=== PATIENT | female | born 1990 | race American Indian/Alaskan Native ===

== ENCOUNTER 2020-09-07 10:52 | Emergency (ER) | payer MEDICAID, OTHER ==
[2020-09-07] MEDS ORDERED: LIDOCAINE (1%) 10 MG/1 ML VIAL 20 ML MDV INFILTRATI ONE (10:59)
[2020-09-07] MEDS ORDERED: HYDROcodone/ACETAMINOPHEN 5-325 MG TAB PO ONE (10:59)
--- NOTE | 2020-09-07 11:03 | Emergency Department Report ---
- General Chief complaint: Skin/Abscess/Foreign Body Stated complaint: INFECTED CYST Time Seen by Provider: 09/07/20 10:59 Source: patient Mode of arrival: Ambulatory Limitations: No Limitations - History of Present Illness Initial comments: pt is a 30 yo female who presents to the ED with c/o left axillary abscess that began 2-3 days ago. she states she has had this in the past. she states she last had it drained approximately a year ago. she denies any fever, n/v/d, chills, drainage, numbness, weakness. no pmhx. no allergies to meds. states she has implanted control in the arm. - Related Data Previous Rx's Medication Instructions Recorded Last Taken Type Ferrous Sulfate [Feosol 325 MG tab] 325 mg PO BID #60 tablet 09/13/14 Unknown Rx HYDROcodone/APAP 5-325 [[place] 1 each PO Q6HR PRN #30 tablet 09/13/14 Unknown Rx 5/325] Ibuprofen [Motrin] 800 mg PO Q8H PRN #30 tablet 09/13/14 Unknown Rx [id number]/Iron Fum/Folic/Docusate 1 each PO QDAY #30 tablet 09/13/14 Unknown Rx [ 19 Tablet] Naproxen [EC-Naprosyn] 500 mg PO BID PRN #20 tablet. 09/07/20 Unknown Rx Sulfamethoxazole/Trimethoprim 1 each PO BID 7 Days #14 tablet 09/07/20 Unknown Rx [Bactrim DS TAB] Allergies Allergy/AdvReac Type Severity Reaction Status Date / Time No Known Allergies Allergy Verified 09/07/20 10:53 Abscess Boil HPI - HPI Chief Complaint: Skin/Abscess/Foreign Body Stated Complaint: INFECTED CYST Time Seen by Provider: 09/07/20 10:59 Home Medications: Previous Rx's Medication Instructions Recorded Last Taken Type Ferrous Sulfate [Feosol 325 MG tab] 325 mg PO BID #60 tablet 09/13/14 Unknown Rx HYDROcodone/APAP 5-325 [[place] 1 each PO Q6HR PRN #30 tablet 09/13/14 Unknown Rx 5/325] Ibuprofen [Motrin] 800 mg PO Q8H PRN #30 tablet 09/13/14 Unknown Rx [id number]/Iron Fum/Folic/Docusate 1 each PO QDAY #30 tablet 09/13/14 Unknown Rx [ 19 Tablet] Naproxen [EC-Naprosyn] 500 mg PO BID PRN #20 tablet. 09/07/20 Unknown Rx Sulfamethoxazole/Trimethoprim 1 each PO BID 7 Days #14 tablet 09/07/20 Unknown Rx [Bactrim DS TAB] Allergies/Adverse Reactions: Allergies Allergy/AdvReac Type Severity Reaction Status Date / Time No Known Allergies Allergy Verified 09/07/20 10:53 ED Review of Systems ROS: Stated complaint: INFECTED CYST Other details as noted in HPI Comment: All other systems reviewed and negative ED Past Medical Hx - Past Medical History Hx Hypertension: No Hx Congestive Heart Failure: No Hx Diabetes: No Hx Deep Vein Thrombosis: No Hx Renal Disease: No Hx Sickle Cell Disease: No Hx Seizures: No Hx Asthma: No Hx COPD: No Hx HIV: No - Surgical History Past Surgical History?: Yes Additional Surgical History: CSECT - Social History Smoking Status: Current Every Day Smoker Substance Use Type: None - Medications Home Medications: Home Medications Medication Instructions Recorded Confirmed Last Taken Type Ferrous Sulfate [Feosol 325 MG tab] 325 mg PO BID #60 tablet 09/13/14 Unknown Rx HYDROcodone/APAP 5-325 [[place] 1 each PO Q6HR PRN #30 tablet 09/13/14 Unknown Rx 5/325] Ibuprofen [Motrin] 800 mg PO Q8H PRN #30 tablet 09/13/14 Unknown Rx [id number]/Iron Fum/Folic/Docusate 1 each PO QDAY #30 tablet 09/13/14 Unknown Rx [ 19 Tablet] Naproxen [EC-Naprosyn] 500 mg PO BID PRN #20 tablet. 09/07/20 Unknown Rx Sulfamethoxazole/Trimethoprim 1 each PO BID 7 Days #14 tablet 09/07/20 Unknown Rx [Bactrim DS TAB] ED Physical Exam - General Limitations: No Limitations General appearance: alert, in no apparent distress - Head Head exam: Present: atraumatic, normocephalic - Eye Eye exam: Present: normal appearance - ENT ENT exam: Present: mucous membranes moist - Respiratory Respiratory exam: Absent: respiratory distress, accessory muscle use - Neurological Exam Neurological exam: Present: alert, oriented X3 - Psychiatric Psychiatric exam: Present: normal affect, normal mood - Skin Skin exam: Present: warm, dry, other (there is a 4 cm area of induration and central fluctuance present to the left axilla, no drainage, no opening, no necrosis, mild surrounding erythema, neurovascularly intact) ED Course Vital Signs 09/07/20 10:53 Temperature 98.5 F Pulse Rate 94 H Respiratory 18 Rate Blood Pressure 138/77 O2 Sat by Pulse 98 Oximetry - I & D Left Arm Type of Procedure: Complex Site: left axilla Blade Size: 11 I & D Procedure: betadine prep, sterile drapes applied, sterile dressing applied Progress: betadine prep, sterile drapes applied, 6 cc of 1% lidocaine without epi used as anesthetic, 11 blade used to make 2 cm incision, copious amounts of malodorous purulent drainage, used blunt hemostats to break up loculations, irrigated with saline, packed with iodoform, sterile dressing applied, pt tolerated well, no complications, bleeding controlled ED Medical Decision Making - Medical Decision Making pt is a 30 yo female who presents to the ED with c/o left axillary abscess that began 2-3 days ago. she states she has had this in the past. she states she last had it drained approximately a year ago. she denies any fever, n/v/d, chills, drainage, numbness, weakness. no pmhx. no allergies to meds. states she has implanted control in the arm. vitals are normal. on exam: there is a 4 cm area of induration and central fluctuance present to the left axilla, no drainage, no opening, no necrosis, mild surrounding erythema, neurovascularly intact. I&D performed per procedure note. Due to mild surrounding cellulitis, Bactrim prescribed. Patient given prescription for naproxen to take as needed for pain. Advised patient please take medication as prescribed. please take your antibiotics to completion. keep area clean, dry, covered. please return to the ED in two days for packing removal. may wash around area with soap and water gently and pat dry. no hot tub, no pool, no soaking in water. follow up with a primary care doctor. return to the emergency room for any new or worsening sympt oms. Critical care attestation.: If time is entered above; I have spent that time in minutes in the direct care of this critically ill patient, excluding procedure time. ED Disposition Clinical Impression: Abscess of axilla, left Disposition: DC-01 TO HOME OR SELFCARE Is pt being admited?: No Does the pt Need Aspirin: No Condition: Stable Instructions: Skin Abscess, Incision and Drainage, Care After Additional Instructions: please take medication as prescribed. please take your antibiotics to completion. keep area clean, dry, covered. please return to the ED in two days for packing removal. may wash around area with soap and water gently and pat dry. no hot tub, no pool, no soaking in water. follow up with a primary care doctor. return to the emergency room for any new or worsening symptoms. Prescriptions: Sulfamethoxazole/Trimethoprim [Bactrim DS TAB] 1 each PO BID 7 Days #14 tablet Naproxen [EC-Naprosyn] 500 mg PO BID PRN #20 tablet.dr GODDARD Reason: pain Referrals: PRIMARY MD NELY [Primary Care Provider] - 2-3 Days ALISHA FERNÁNDEZ MD [Staff Physician] - 2-3 Days [facility] [Provider Group] - 2-3 Days Time of Disposition: 11:38 Print Language: MALAYSIAN
[2020-09-07 11:21] VITALS: BP 138/77
== END 2020-09-07 12:10 | disposition home or self-care (01) ==
LOC: ED 10:52
DX: L02.412 Cutaneous abscess of left axilla (principal); F17.200 Nicotine dependence, unspecified, uncomplicated; Z98.890 Other specified postprocedural states; Z79.1 Long term (current) use of non-steroidal anti-inflammatories (NSAID); Z79.899 Other long term (current) drug therapy
CPT/HCPCS: 99282

== ENCOUNTER 2020-09-09 23:49 | Emergency (ER) | payer MEDICAID ==
--- NOTE | 2020-09-10 00:04 | Emergency Department Report ---
Suture/Staple Removal - HPI Stated Complaint: PACKING REMOVAL Time Seen by Provider: 09/10/20 00:00 When Sutures or Delia Placed: 2 days Wound Location: 21-year-old Northern [place] female that emerge department for wound reevaluation a ED Review of Systems ROS: Stated complaint: PACKING REMOVAL Other details as noted in HPI Comment: All other systems reviewed and negative ED Past Medical Hx - Past Medical History Hx Hypertension: No Hx Congestive Heart Failure: No Hx Diabetes: No Hx Deep Vein Thrombosis: No Hx Renal Disease: No Hx Sickle Cell Disease: No Hx Seizures: No Hx Asthma: No Hx COPD: No Hx HIV: No - Surgical History Additional Surgical History: CSECT - Social History Smoking Status: Former Smoker - Medications Home Medications: Home Medications Medication Instructions Recorded Confirmed Last Taken Type Ferrous Sulfate [Feosol 325 MG tab] 325 mg PO BID #60 tablet 09/13/14 Unknown Rx HYDROcodone/APAP 5-325 [[place] 1 each PO Q6HR PRN #30 tablet 09/13/14 Unknown Rx 5/325] Ibuprofen [Motrin] 800 mg PO Q8H PRN #30 tablet 09/13/14 Unknown Rx [id number]/Iron Fum/Folic/Docusate 1 each PO QDAY #30 tablet 09/13/14 Unknown Rx [ 19 Tablet] Naproxen [EC-Naprosyn] 500 mg PO BID PRN #20 tablet. 09/07/20 Unknown Rx Sulfamethoxazole/Trimethoprim 1 each PO BID 7 Days #14 tablet 09/07/20 Unknown Rx [Bactrim DS TAB] Suture Removal Exam - Exam General: Vital signs noted. No distress. Alert and acting appropriately. Wound: Yes Tenderness, Yes Drainage (Bloody), No Pathologic Erythema, No Pus, No Wound Dehiscence Other Systems: All other systems reviewed and are unremarkable. ED Recheck MDM - Differential Diagnosis Wound Recheck, Cellultitis Recheck - Medical Decision Making Packing was removed entirely no complications and the wound was expressed and cleaned. The area was redressed no further packing was utilized and she was educated on the appropriate wound care treatment and follow-up Critical care attestation.: If time is entered above; I have spent that time in minutes in the direct care of this critically ill patient, excluding procedure time. ED Disposition Clinical Impression: Abscess of axilla, left, Abscess packing removal Disposition: TO HOME OR SELFCARE Is pt being admited?: No Does the pt Need Aspirin: No Condition: Stable Instructions: How to Change Your Wound Dressing, [id number] Referrals: [facility] [Provider Group] - 3-5 Days Abscess Boil HPI - HPI Stated Complaint: PACKING REMOVAL Time Seen by Provider: 09/10/20 00:00 Duration: 2 Days Severity: Mild HPI: 21-year-old [place] female that emerge department for wound reevaluation and packing removal from the left axillary region. States has been taking antibiotics as prescribed packing was placed about 2 days ago she reports no fever, chills, sweats no chest pain or palpitations. Home Medications: Previous Rx's Medication Instructions Recorded Last Taken Type Ferrous Sulfate [Feosol 325 MG tab] 325 mg PO BID #60 tablet 09/13/14 Unknown Rx HYDROcodone/APAP 5-325 [[place] 1 each PO Q6HR PRN #30 tablet 09/13/14 Unknown Rx 5/325] Ibuprofen [Motrin] 800 mg PO Q8H PRN #30 tablet 09/13/14 Unknown Rx [id number]/Iron Fum/Folic/Docusate 1 each PO QDAY #30 tablet 09/13/14 Unknown Rx [ 19 Tablet] Naproxen [EC-Naprosyn] 500 mg PO BID PRN #20 tablet. 09/07/20 Unknown Rx Sulfamethoxazole/Trimethoprim 1 each PO BID 7 Days #14 tablet 09/07/20 Unknown Rx [Bactrim DS TAB] Allergies/Adverse Reactions: Allergies Allergy/AdvReac Type Severity Reaction Status Date / Time No Known Allergies Allergy Verified 09/07/20 10:53
== END 2020-09-10 01:46 | disposition home or self-care (01) ==
LOC: ED 23:49
DX: L02.412 Cutaneous abscess of left axilla (principal); Z48.01 Encounter for change or removal of surgical wound dressing; Z98.890 Other specified postprocedural states; Z87.891 Personal history of nicotine dependence; Z79.899 Other long term (current) drug therapy
CPT/HCPCS: 99282

== ENCOUNTER 2022-02-03 10:00 | Outpatient (CLI) | payer MEDICAID ==
[2022-02-03 06:33] LABS: Basophils # (Auto) 0.2 K/mm3 (0.0-0.1); Basophils % (Auto) 2.4 % (0.0-1.8); Eosinophils # (Auto) 0.7 K/mm3 (0.0-0.4); Eosinophils % (Auto) 8.6 % (0.0-4.3); Hematocrit 33.8 % (30.3-42.9); Hemoglobin 10.9 gm/dl (10.1-14.3); Lymphocytes # (Auto) 2.5 K/mm3 (1.2-5.4); Lymphocytes % (Auto) 29.9 % (13.4-35.0); Mean Corpuscular HGB Conc 32 % (30-34); Mean Corpuscular Volume 86 fl (79-97); Monocytes # (Auto) 0.7 K/mm3 (0.0-0.8); Monocytes % (Auto) 8.6 % (0.0-7.3); Platelet Count 270 K/mm3 (140-440); Red Blood Count 3.95 M/mm3 (3.65-5.03); Red Cell Distribution Width 15.1 % (13.2-15.2)
[~2022-02-03 10:00] MED LIST: BICITRA ORAL LIQD 30ML PO ONE; FAMOTIDINE 20 MG/2 ML INJ IV ONE; LACTATED RINGERS 1,000 ML IV SCH; LACTATED RINGERS 1,000 ML ONE; METOCLOPRAMIDE 10 MG/2 ML INJ IV ONE; OXYTOCIN DRIP 30 UNITS/500 ML BAG IV SCH; ceFAZolin/Water 2 GM/20 ML 2 GM/20 ML SYRINGE IV NR
[2022-02-08] MEDS ORDERED: SODIUM CHLORIDE 0.9% IRR 1,500 ML BOTTLE IR ONE (10:57)
[2022-02-08] MEDS ORDERED: WATER FOR IRRIG STERILE 1,500 ML BOTTLE IR ONE (10:57)
[2022-02-08 13:25] VITALS: BP 129/89
== END 2022-02-03 15:30 | disposition home or self-care (01) ==
LOC: TRG 10:00
PROVIDERS: ATTEND Obstetrics & Gynecology
DX: O82 Encounter for cesarean delivery without indication (principal); Z3A.39 39 weeks gestation of pregnancy
CPT/HCPCS: 36415; 85025; 86592; 86850; 86900; 86901; G0378

== ENCOUNTER 2022-02-08 05:09 | Inpatient (IN) | payer MEDICAID ==
[2022-02-08 06:05] LABS: Bilirubin,Urine Negative (Negative); Blood,Urine Negative (Negative); Color,Urine Yellow (Yellow)
[2022-02-08 06:06] LABS: Bacteria,Urine 1+ /HPF (Negative); Mucus,Urine 1+ /HPF; RBC,Urine < 1.0 /HPF (0.0-6.0); Urobilinogen,Urine 0.2 mg/dL (<2.0)
[2022-02-08 06:07] LABS: Basophils # (Auto) 0.1 K/mm3 (0.0-0.1); Basophils % (Auto) 1.4 % (0.0-1.8); Eosinophils # (Auto) 0.5 K/mm3 (0.0-0.4); Hematocrit 33.7 % (30.3-42.9); Hemoglobin 11.2 gm/dl (10.1-14.3); Lymphocytes # (Auto) 2.8 K/mm3 (1.2-5.4); Lymphocytes % (Auto) 34.1 % (13.4-35.0); Mean Corpuscular HGB Conc 33 % (30-34); Mean Corpuscular Volume 85 fl (79-97); Monocytes # (Auto) 0.7 K/mm3 (0.0-0.8); Monocytes % (Auto) 8.3 % (0.0-7.3); Platelet Count 275 K/mm3 (140-440); Red Blood Count 3.99 M/mm3 (3.65-5.03); Red Cell Distribution Width 15.1 % (13.2-15.2)
[2022-02-08] MEDS ORDERED: BICITRA ORAL LIQD 30ML PO ONE (08:00)
[2022-02-08] MEDS ORDERED: ceFAZolin/STERILE WATER 2 GM/20 ML SYRINGE IV NR (08:00)
[2022-02-08] MEDS ORDERED: LACTATED RINGERS 1,500 ML IV NR (08:00)
[2022-02-08] MEDS ORDERED: METOCLOPRAMIDE 10 MG/2 ML INJ IV NR (08:00)
[2022-02-08] MEDS ORDERED: FAMOTIDINE 20 MG/2 ML INJ IV ONE (08:00)
[2022-02-08] MEDS ORDERED: METOCLOPRAMIDE 10 MG/2 ML INJ IV ONE (08:04)
[2022-02-08] MEDS ORDERED: BICITRA ORAL LIQD 30ML PO NR (08:04)
[2022-02-08] MEDS ORDERED: FAMOTIDINE 20 MG/2 ML INJ IV NR (08:04)
[2022-02-08] MEDS ORDERED: LACTATED RINGERS 1,000 ML IV SCH (08:15)
--- NOTE | 2022-02-08 08:29 | History and Physical Report ---
History of Present Illness Date of examination: 02/08/22 Date of admission: 02/08/22 05:09 Chief complaint: Repeat Section History of present illness: 31 yo at 39.4 wga COLLEEN 02/10/22 (US)here for repeat . History of x 1 secondary to heart rate abnormalities and oligohydramnios. Patient has a documented low transverse CS at [facility] and there were no complications. Patient declined a TOLAC and requested a repeat CS. Here course was uncomplicated. GBS positive Blood type A+/Negative. No major complaints today. Past History Past Surgical History: section ([facility] uncomplicated) Family/Genetic History: none Social history: no significant social history - Obstetrical History Expected Date of Delivery: 02/10/22 Actual Gestation: 39 Week(s) 5 Day(s) : 2 Para: 1 Hx # Term Pregnancies: 1 Number of Pregnancies: 0 Spontaneous Abortions: 0 Induced : 0 Number of Living Children: 1 #1 Gender: Male year: Method of Delivery: (Oligohydramnios/Bradycardia/General anesthesia/no complications.) Complications: none Medications and Allergies Allergies Allergy/AdvReac Type Severity Reaction Status Date / Time No Known Allergies Allergy Verified 02/08/22 05:37 Home Medications Medication Instructions Recorded Confirmed Last Taken Type Ferrous Sulfate [Feosol 325 MG tab] 325 mg PO BID #60 tablet 09/13/14 Unknown Rx HYDROcodone/APAP 5-325 [[place] 1 each PO Q6HR PRN #30 tablet 09/13/14 Unknown Rx 5/325] Ibuprofen [Motrin] 800 mg PO Q8H PRN #30 tablet 09/13/14 Unknown Rx [id number]/Iron Fum/Folic/Docusate 1 each PO QDAY #30 tablet 09/13/14 Unknown Rx [ 19 Tablet] Naproxen [EC-Naprosyn] 500 mg PO BID PRN #20 tablet. 09/07/20 Unknown Rx Sulfamethoxazole/Trimethoprim 1 each PO BID 7 Days #14 tablet 09/07/20 Unknown Rx [Bactrim DS TAB] Active Meds: Active Medications Cefazolin Sodium (Cefazolin/Sterile Water 2 Gm/20 Ml Syringe) 2 gm IV PREOP NR Stop: 02/08/22 23:45 Citric Acid/Sodium Citrate (Bicitra Oral Liqd 30ml) 30 ml PO ONCE ONE Stop: 02/08/22 08:05 Famotidine (Famotidine 20 Mg/2 Ml Inj) 20 mg IV ONCE ONE Stop: 02/08/22 08:05 Lactated Ringer's (Lactated Ringers) 1,500 mls @ 2,250 mls/hr IV PREOP NR Stop: 02/08/22 10:30 Lactated Ringer's (Lactated Ringers) 1,000 mls @ 2,250 mls/hr IV PREOP SAVANNAH Stop: 02/09/22 08:42 Oxytocin/Sodium Chloride (Pitocin/Ns 30 Unit/500ml) 30 units in 500 mls @ 0 mls/hr IV TITR SAVANNAH; Protocol Cefazolin Sodium 2 gm/ Sodium (Chloride) 100 mls @ 100 drops/min IV PREOP NR; Protocol Metoclopramide HCl (Metoclopramide 10 Mg/2 Ml Inj) 10 mg IV PREOP NR Stop: 02/08/22 23:45 Metoclopramide HCl (Metoclopramide 10 Mg/2 Ml Inj) 10 mg IV ONCE ONE Stop: 02/08/22 08:05 Review of Systems All systems: negative Eyes: deferred Ears, nose, mouth and throat: deferred Rectal Exam: deferred - Vital Signs Vital signs: Vital Signs Pulse Pulse Ox 108 H 99 02/08/22 05:24 02/08/22 05:24 Temp Pulse Resp BP Pulse Ox 98.3 F 84 16 114/78 96 02/08/22 05:26 02/08/22 08:14 02/08/22 05:26 02/08/22 05:25 02/08/22 08:14 - Physical Exam Cardiovascular: Regular rate (Gravid), Normal S1, Normal S2 Deep Tendon Reflex Grade: Normal +2 - Obstetrical FHR: category 1 Uterine Contraction Monitor Mode: External Results Result Diagrams: 02/08/22 05:00 Abnormal lab results 02/08/22 02/08/22 Range/Units 05:00 05:00 [place] % (Auto) 8.3 H (0.0-7.3) % Eos % (Auto) 6.0 H (0.0-4.3) % Eos # (Auto) 0.5 H (0.0-0.4) K/mm3 U Epithel Cells (Auto) 14.0 H (0-13.0) /HPF All other labs normal. Assessment and Plan - Patient Problems (1) History of delivery, currently Current Visit: Yes Status: Acute (2) Delivery by (planned) section occurring after 37 completed weeks of gestation but before 39 completed weeks gestation due to (spontaneous) onset of labor, with mention of complication Current Visit: No Status: Acute (3) with 39 completed weeks gestation Current Visit: Yes Status: Acute (4) Declines (vaginal after ) trial Current Visit: Yes Status: Acute (5) GBS (group B Streptococcus carrier), +RV culture, currently Current Visit: Yes Status: Acute
[2022-02-08] MEDS ORDERED: OXYTOCIN DRIP 30 UNITS/500 ML BAG IV SCH ×2 (09:00→11:00)
[2022-02-08] MEDS ORDERED: dexAMETHasone 20 MG/5 ML VIAL ONE (09:48)
[2022-02-08] MEDS ORDERED: ONDANSETRON 4 MG/2 ML INJ ONE (09:48)
[2022-02-08] MEDS ORDERED: KETOROLAC 30 MG/1 ML INJ ONE (09:48)
[2022-02-08] MEDS ORDERED: fentaNYL 100 MCG/2 ML INJ ONE (09:48)
[2022-02-08] MEDS ORDERED: ePHEDrine SULFATE 50 MG/1 ML INJ ONE ×2 (09:48→10:51)
[2022-02-08] MEDS ORDERED: BUPIVACAINE/PF (0.25%) 2.5 MG/ML 30 ML VIAL INFILTRATI ONE (09:49)
--- NOTE | 2022-02-08 09:54 | Anesthesia Consultation ---
Anesthesia Consult and Med Hx - Airway Anesthetic Teeth Evaluation: Good ROM Head & Neck: Adequate Mental/Hyoid Distance: Adequate Mallampati Class: Class II Intubation Access Assessment: Probably Good - Cardiac Exam Cardiac Exam: RRR - Pre-Operative Health Status ASA Pre-Surgery Classification: ASA2 Proposed Anesthetic Plan: Spinal Nerve Block: TAP - Pulmonary Hx Smoking: Yes (3 years 1/2 ppd) Hx Asthma: No COPD: No Hx Pneumonia: No - Cardiovascular System Hx Hypertension: No - Central Nervous System Hx Seizures: No Hx Psychiatric Problems: No - Gastrointestinal Hx Gastroesophageal Reflux Disease: Yes - Endocrine Hx Renal Disease: No Hx End Stage Renal Disease: No Hx Hypothyroidism: No Hx Hyperthyroidism: No - Hematic Hx Anemia: No Hx Sickle Cell Disease: No - Other Systems Hx Alcohol Use: No
--- NOTE | 2022-02-08 09:55 | Anesthesia Day of Surgery ---
Anesthesia Day of Surgery - Day of Surgery Patient Examined: Yes Patient H&P Reviewed: Yes Patient is NPO: Yes Beta Blockers: No Cardiac Clearance: No Pulmonary Clearance: No Mario's Test: N/A
[2022-02-08] MEDS ORDERED: WITCH HAZEL/ GLYCERIN PAD TP PRN (10:30)
[2022-02-08] MEDS ORDERED: KETOROLAC 30 MG/1 ML INJ IV PRN (10:30)
[2022-02-08] MEDS ORDERED: LANOLIN/ZINC/DIMETHICONE (LANSINOH) 7 GM TP PRN (10:30)
[2022-02-08] MEDS ORDERED: ACETAMINOPHEN 325 MG TAB PO PRN (10:30)
[2022-02-08] MEDS ORDERED: ONDANSETRON 4 MG/2 ML INJ IV PRN (11:00)
[2022-02-08] MEDS ORDERED: NALOXONE 0.4 MG/1 ML INJ IV PRN (11:00)
[2022-02-08] MEDS ORDERED: MORPHINE 4 MG/1 ML INJ IV PRN (11:00)
[2022-02-08] MEDS ORDERED: PROMETHAZINE 25 MG RECT SUPP PR PRN (11:00)
--- NOTE | 2022-02-08 12:18 | Progress Note ---
Regional Anesthesia Block - Regional Anesthesia Block Start Time: 11:59 Stop Time: 12:08 Performed By:: ANEESH PEREZ Procedure: Marques US TAP vblocks for post op pain, prep NSF, ).25% bupi 30 ml each side, debora well, VSS
--- NOTE | 2022-02-08 12:23 | Post Operative Note ---
Date of procedure: 02/08/22 (howard summoned for code blue) Pre-op diagnosis: IUP at 39.4 wga; History of Section x 1; Declined TOLAC Post-op diagnosis: same Findings: Male fetus Weight 3240g APGARS 8/9 OP presentation Placenta intact with 3V cord Normal Uterus fallopian tubes and ovaries Procedure: Repeat Low transverse section Anesthesia: spinal, other (Tap Bloc) Surgeon: STEFANIE ZENDEJAS Estimated blood loss: other (427ml) Pathology: none Specimen disposition: discarded Condition: stable Disposition: PACU
--- NOTE | 2022-02-08 12:37 | Procedure Note ---
OB Delivery Note - Section Postop diagnosis: same section procedure: repeat low transverse Disposition: PACU Complications: none - Infant A at 1 minute: 8 at 5 minutes: 9 Infant Gender: Male (Occiput posterior)
[2022-02-08 15:55] LABS: Basophils % (Auto) 0.2 % (0.0-1.8); Eosinophils % (Auto) 0.3 % (0.0-4.3); Hematocrit 34.5 % (30.3-42.9); Hemoglobin 10.8 gm/dl (10.1-14.3); Lymphocytes # (Auto) 1.1 K/mm3 (1.2-5.4); Lymphocytes % (Auto) 7.5 % (13.4-35.0); Mean Corpuscular HGB Conc 31 % (30-34); Mean Corpuscular Volume 86 fl (79-97); Monocytes # (Auto) 0.4 K/mm3 (0.0-0.8); Monocytes % (Auto) 2.6 % (0.0-7.3); Platelet Count 254 K/mm3 (140-440); Red Blood Count 4.02 M/mm3 (3.65-5.03); Red Cell Distribution Width 15.4 % (13.2-15.2)
[2022-02-08 21:27] LABS: Hematocrit 31.9 % (30.3-42.9); Hemoglobin 10.1 gm/dl (10.1-14.3)
[2022-02-09] MEDS: oxyCODONE /ACETAMINOPHEN 5-325MG TAB PO PRN ×2 (09:11→18:21)
[2022-02-09] MEDS: FERROUS SULFATE 325 MG TAB PO SCH (11:21)
--- NOTE | 2022-02-09 12:05 | Post Anesthesia Evaluation ---
- Post Anesthesia Evaluation Patient Participated: Yes Airway Patent: Yes Stable Respiratory Function: Yes Nausea/Vomiting: No Temp > 96.8F: Yes Pain Manageable: Yes Adequeate Hydration: Yes Anesthesia Complications: No Block Receding Appropriately: Yes Patient on Ventilator: No
--- NOTE | 2022-02-09 15:43 | XRay Report ---
CHEST 2 VIEWS INDICATION / CLINICAL INFORMATION: S/P Section with bilaterl wheezing. COMPARISON: None available. FINDINGS: SUPPORT DEVICES: None. HEART / MEDIASTINUM: No significant abnormality. LUNGS / PLEURA: No significant pulmonary or pleural abnormality. No pneumothorax. ADDITIONAL FINDINGS: No significant additional findings. IMPRESSION: 1. No acute findings. Signer Name: Quinton Valdez MD Signed: 02/09/2022 3:39 PM Workstation Name: [employer]
--- NOTE | 2022-02-09 16:00 | Progress Note ---
Assessment and Plan A S/P POD#1 Bilateral wheezing on exam Stable P CXR secondary to wheezing on lung exam Encouraged to use incentive spirometer Continue PO care. Subjective Date of service: 02/09/22 Principal diagnosis: Post Section Interval history: Pt. without complain. Denies SOB or chest pain. Tolerating regular diet but decrease appetite. Normal lochia Objective - Constitutional Vitals: Vital Signs - 12hr 02/09/22 02/09/22 02/09/22 05:28 08:15 09:11 Temperature 99.1 F 98.2 F Pulse Rate 92 H 86 Respiratory 18 20 18 Rate Blood Pressure 112/70 Blood Pressure 127/82 [Left] O2 Sat by Pulse 96 100 Oximetry 02/09/22 09:57 Temperature Pulse Rate Respiratory 18 Rate Blood Pressure Blood Pressure [Left] O2 Sat by Pulse Oximetry General appearance: Present: no acute distress - Respiratory Respiratory effort: normal Respiratory: bilateral: wheezing - Cardiovascular Rhythm: regular Extremities: No edema - Gastrointestinal General gastrointestinal: Present: soft, tender (appropriately tender), other (Dressing - clean and dry) - Labs CBC & Chem 7: 02/08/22 20:56 Medications & Allergies - Medications Allergies/Adverse Reactions: Allergies No Known Allergies Allergy (Verified 02/08/22 05:37) Home Medications: Home Medications Medication Instructions Recorded Confirmed Last Taken Type Ferrous Sulfate [Feosol 325 MG tab] 325 mg PO BID #60 tablet 09/13/14 Unknown Rx HYDROcodone/APAP 5-325 [[place] 1 each PO Q6HR PRN #30 tablet 09/13/14 Unknown Rx 5/325] Ibuprofen [Motrin] 800 mg PO Q8H PRN #30 tablet 09/13/14 Unknown Rx [id number]/Iron Fum/Folic/Docusate 1 each PO QDAY #30 tablet 09/13/14 Unknown Rx [ 19 Tablet] Naproxen [EC-Naprosyn] 500 mg PO BID PRN #20 tablet. 09/07/20 Unknown Rx Sulfamethoxazole/Trimethoprim 1 each PO BID 7 Days #14 tablet 09/07/20 Unknown Rx [Bactrim DS TAB] Active Medications: Generic Name Dose Route Start Last Admin Trade Name Freq PRN Reason Stop Dose Admin Acetaminophen 650 mg 02/08/22 10:30 Acetaminophen 325 Mg Tab PO Q4H PRN Fever >100.5/ELIZALDE Ferrous Sulfate 325 mg 02/09/22 10:00 Ferrous Sulfate 325 Mg Tab PO QDAY SAVANNAH Oxytocin/Sodium Chloride 30 units in 500 mls @ 0 mls/hr 02/08/22 09:00 Pitocin/Ns 30 Unit/500ml IV TITR [facility] Protocol As Directed Oxytocin/Sodium Chloride 30 units in 500 mls @ 40 mls/hr 02/08/22 11:00 Pitocin/Ns 30 Unit/500ml IV TITR [facility] Protocol Ibuprofen 600 mg 02/08/22 10:30 Ibuprofen 600 Mg Tab PO Q6H PRN Pain, Mild (1-3) Ketorolac Tromethamine 15 mg 02/08/22 10:30 02/09/22 06:37 Ketorolac 30 Mg/1 Ml Inj IV 02/13/22 10:29 15 mg Q6H PRN Administration Pain, Mild (1-3) Morphine Sulfate 4 mg 02/08/22 11:00 02/08/22 22:01 Morphine 4 Mg/1 Ml Inj IV 4 mg Q4H PRN Administration Pain , Severe (7-10) Multi-Ingredient Ointment 1 applic 02/08/22 10:30 Lanolin/Zinc/Dimethicone (Lansinoh) 7 Gm TP PRN PRN dryness/cracking Naloxone HCl 0.1 mg 02/08/22 11:00 Naloxone 0.4 Mg/1 Ml Inj IV Q2MIN PRN Res Rate </= 8 or 02 SAT < 92% Ondansetron HCl 4 mg 02/08/22 11:00 Ondansetron 4 Mg/2 Ml Inj IV Q8H PRN Nausea And Vomiting Oxycodone/Acetaminophen 1 tab 02/08/22 11:00 02/09/22 09:11 Oxycodone /Acetaminophen 5-325mg Tab PO 1 tab Q6H PRN Administration Pain, Moderate (4-6) Promethazine HCl 25 mg 02/08/22 11:00 Promethazine 25 Mg Rect Supp TN Q6H PRN N/V IF NPO AND NO IV ACCESS Sodium Chloride 10 ml 02/08/22 11:00 Sodium Chloride 0.9% 10 Ml Flush Syringe IV 02/21/22 10:59 PRN NR Witch Alysha/Glycerin 1 each 02/08/22 10:30 Witch Alysha/ Glycerin Pad TP PRN PRN Hemorrhoids/cleansing/soothing
[2022-02-10] MEDS: oxyCODONE /ACETAMINOPHEN 5-325MG TAB PO PRN ×2 (00:57→20:12)
[2022-02-10] MEDS: IBUPROFEN 600 MG TAB PO PRN ×2 (06:35→16:44)
[2022-02-10] MEDS: FERROUS SULFATE 325 MG TAB PO SCH (10:06)
--- NOTE | 2022-02-10 14:32 | Progress Note ---
Assessment and Plan POD#2 C/S with small drainage from incision, 1. repeat cbc today and pressure dressing with gauze placed to right side of the incision 2. may have albuterol prn wheezing 3. Pt encouraged to deep breathe and cough frequently to keep airways clear 4. routine post op care Subjective Date of service: 02/10/22 Principal diagnosis: POD#2 C/Sect Interval history: pt states she passed flatus yesterday, pain controlled with meds. pt voiding without difficulty. vag bleed less than a period. pt is bottle and breast feeding. Objective - Constitutional Vitals: Vital Signs - 12hr 02/10/22 02/10/22 02/10/22 06:35 07:55 07:58 Temperature 98.0 F Pulse Rate 87 Respiratory 18 28 H Rate Blood Pressure 116/77 O2 Sat by Pulse 99 Oximetry O2 Sat by Pulse 99 Oximetry [ Anterior Bilateral Throughout] 02/10/22 02/10/22 08:46 12:29 Temperature Pulse Rate Respiratory 22 Rate Blood Pressure O2 Sat by Pulse 99 Oximetry O2 Sat by Pulse 99 Oximetry [ Anterior Bilateral Throughout] General appearance: Present: no acute distress - Neck Neck: normal ROM - Respiratory Respiratory effort: other (cold rattle sound noted and that cleared with coughing. CTA bilaterally by nurse in room listening breath sounds) - Breasts Breasts: deferred - Cardiovascular Rhythm: regular Extremities: No edema - Gastrointestinal General gastrointestinal: Present: soft, non-tender, other (Dressing removed and small drainagage noted to right side of wound thru dermabond dressing) - Genitourinary Female genitourinary: other (fundus firm 1cm below umbilicus, non-tender; lochia moderate) - Integumentary Integumentary: warm, dry - Labs CBC & Chem 7: 02/08/22 20:56 Medications & Allergies - Medications Allergies/Adverse Reactions: Allergies No Known Allergies Allergy (Verified 02/08/22 05:37) Home Medications: Home Medications Medication Instructions Recorded Confirmed Last Taken Type Ferrous Sulfate [Feosol 325 MG tab] 325 mg PO BID #60 tablet 09/13/14 Unknown Rx HYDROcodone/APAP 5-325 [[place] 1 each PO Q6HR PRN #30 tablet 09/13/14 Unknown Rx 5/325] Ibuprofen [Motrin] 800 mg PO Q8H PRN #30 tablet 09/13/14 Unknown Rx [id number]/Iron Fum/Folic/Docusate 1 each PO QDAY #30 tablet 09/13/14 Unknown Rx [ 19 Tablet] Naproxen [EC-Naprosyn] 500 mg PO BID PRN #20 tablet. 09/07/20 Unknown Rx Sulfamethoxazole/Trimethoprim 1 each PO BID 7 Days #14 tablet 09/07/20 Unknown Rx [Bactrim DS TAB] Active Medications: Generic Name Dose Route Start Last Admin Trade Name Freq PRN Reason Stop Dose Admin Acetaminophen 650 mg 02/08/22 10:30 Acetaminophen 325 Mg Tab PO Q4H PRN Fever >100.5/ELIZALDE Ferrous Sulfate 325 mg 02/09/22 10:00 02/10/22 10:06 Ferrous Sulfate 325 Mg Tab PO 325 mg QDAY SAVANNAH Administration Oxytocin/Sodium Chloride 30 units in 500 mls @ 0 mls/hr 02/08/22 09:00 Pitocin/Ns 30 Unit/500ml IV TITR SAVANNAH Protocol As Directed Oxytocin/Sodium Chloride 30 units in 500 mls @ 40 mls/hr 02/08/22 11:00 Pitocin/Ns 30 Unit/500ml IV TITR SAVANNAH Protocol Ibuprofen 600 mg 02/08/22 10:30 02/10/22 06:35 Ibuprofen 600 Mg Tab PO 600 mg Q6H PRN Administration Pain, Mild (1-3) Ketorolac Tromethamine 15 mg 02/08/22 10:30 02/09/22 06:37 Ketorolac 30 Mg/1 Ml Inj IV 02/13/22 10:29 15 mg Q6H PRN Administration Pain, Mild (1-3) Morphine Sulfate 4 mg 02/08/22 11:00 02/08/22 22:01 Morphine 4 Mg/1 Ml Inj IV 4 mg Q4H PRN Administration Pain , Severe (7-10) Multi-Ingredient Ointment 1 applic 02/08/22 10:30 Lanolin/Zinc/Dimethicone (Lansinoh) 7 Gm TP PRN PRN dryness/cracking Naloxone HCl 0.1 mg 02/08/22 11:00 Naloxone 0.4 Mg/1 Ml Inj IV Q2MIN PRN Res Rate </= 8 or 02 SAT < 92% Ondansetron HCl 4 mg 02/08/22 11:00 Ondansetron 4 Mg/2 Ml Inj IV Q8H PRN Nausea And Vomiting Oxycodone/Acetaminophen 1 tab 02/08/22 11:00 02/10/22 00:57 Oxycodone /Acetaminophen 5-325mg Tab PO 1 tab Q6H PRN Administration Pain, Moderate (4-6) Promethazine HCl 25 mg 02/08/22 11:00 Promethazine 25 Mg Rect Supp SC Q6H PRN N/V IF NPO AND NO IV ACCESS Sodium Chloride 10 ml 02/08/22 11:00 Sodium Chloride 0.9% 10 Ml Flush Syringe IV 02/21/22 10:59 PRN NR Witch Alysha/Glycerin 1 each 02/08/22 10:30 Witch Alysha/ Glycerin Pad TP PRN PRN Hemorrhoids/cleansing/soothing
[2022-02-10 19:03] LABS: Basophils % (Auto) 0.5 % (0.0-1.8); Eosinophils # (Auto) 0.3 K/mm3 (0.0-0.4); Eosinophils % (Auto) 3.3 % (0.0-4.3); Hematocrit 31.9 % (30.3-42.9); Hemoglobin 10.3 gm/dl (10.1-14.3); Lymphocytes % (Auto) 29.6 % (13.4-35.0); Mean Corpuscular HGB Conc 32 % (30-34); Mean Corpuscular Volume 86 fl (79-97); Monocytes # (Auto) 0.7 K/mm3 (0.0-0.8); Monocytes % (Auto) 6.6 % (0.0-7.3); Platelet Count 298 K/mm3 (140-440); Red Blood Count 3.72 M/mm3 (3.65-5.03); Red Cell Distribution Width 15.6 % (13.2-15.2)
[2022-02-10] MEDS ORDERED: MAGNESIUM HYDROXIDE (MOM) ORAL LIQD UDC PO PRN (21:57)
[2022-02-11] MEDS: FERROUS SULFATE 325 MG TAB PO SCH (10:30)
[2022-02-11 12:17] VITALS: BP 127/75
[2022-02-11] MEDS: IBUPROFEN 600 MG TAB PO PRN (13:00)
--- NOTE | 2022-02-11 13:12 | Progress Note ---
Assessment and Plan POD#3 repeat c/section with resolved wound drainage, mild tacchycardia and repeat CBC yesterday wnl 1. I spoke with Dr. Kingston who performed this case and discussed plan of care with augmentin abx on discharge and shared decision making with the patient as well. Dr. Kingston to follow up patient with appt in her clinic within 5days 2. Scripts for percocet, motrin and augmentin written by me 3. Discharge home now. All questions encouraged and answered Subjective Date of service: 02/11/22 Principal diagnosis: POD#3 C/Sect Interval history: pt is voiding, passing flatus, tolerating reg diet and pain controlled with percocet. pt is also pumping breast milk Objective - Constitutional Vitals: Vital Signs - 12hr 02/11/22 02/11/22 02/11/22 07:55 08:30 12:14 Temperature 97.8 F 98.3 F Pulse Rate 85 95 H Respiratory 20 20 Rate Blood Pressure 125/71 127/75 [Left] O2 Sat by Pulse 100 97 Oximetry O2 Sat by Pulse 98 Oximetry [ Anterior Bilateral Throughout] General appearance: Present: no acute distress - Neck Neck: normal ROM - Respiratory Respiratory effort: normal - Breasts Breasts: deferred - Cardiovascular Rhythm: other (mild tacchycardia) Extremities: No edema - Gastrointestinal General gastrointestinal: Present: soft, non-tender - Genitourinary Female genitourinary: other (fundus 2cm below umbilicus without tenderness, slight warmth on abdomen. Dressing removed and no drainage seen today. Dermabond in place) - Neurologic Neurologic: moves all extremities - Psychiatric Psychiatric: cooperative - Labs CBC & Chem 7: 02/10/22 18:26 Labs: Abnormal lab results 02/10/22 Range/Units 18:26 RDW 15.6 H (13.2-15.2) % Medications & Allergies - Medications Allergies/Adverse Reactions: Allergies No Known Allergies Allergy (Verified 02/08/22 05:37) Home Medications: Home Medications Medication Instructions Recorded Confirmed Last Taken Type Ferrous Sulfate [Feosol 325 MG tab] 325 mg PO BID #60 tablet 09/13/14 Unknown Rx HYDROcodone/APAP 5-325 [[place] 1 each PO Q6HR PRN #30 tablet 09/13/14 Unknown Rx 5/325] Ibuprofen [Motrin] 800 mg PO Q8H PRN #30 tablet 09/13/14 Unknown Rx [id number]/Iron Fum/Folic/Docusate 1 each PO QDAY #30 tablet 09/13/14 Unknown Rx [ 19 Tablet] Naproxen [EC-Naprosyn] 500 mg PO BID PRN #20 tablet. 09/07/20 Unknown Rx Sulfamethoxazole/Trimethoprim 1 each PO BID 7 Days #14 tablet 09/07/20 Unknown Rx [Bactrim DS TAB] Amoxicillin/K Clav Tab [Augmentin 1 tab PO Q12HR 5 Days #10 tab 02/11/22 Unknown Rx 875 mg] Ibuprofen [Motrin] 800 mg PO Q8HR PRN 21 Days #40 02/11/22 Unknown Rx tablet oxyCODONE /ACETAMINOPHEN [Percocet 1 tab PO Q4HR PRN 21 Days #30 tab 02/11/22 Unknown Rx 5/325] Active Medications: Generic Name Dose Route Start Last Admin Trade Name Freq PRN Reason Stop Dose Admin Acetaminophen 650 mg 02/08/22 10:30 Acetaminophen 325 Mg Tab PO Q4H PRN Fever >100.5/ELIZALDE Ferrous Sulfate 325 mg 02/09/22 10:00 02/10/22 10:06 Ferrous Sulfate 325 Mg Tab PO 325 mg QDAY SAVANNAH Administration Oxytocin/Sodium Chloride 30 units in 500 mls @ 0 mls/hr 02/08/22 09:00 Pitocin/Ns 30 Unit/500ml IV TITR SAVANNAH Protocol As Directed Oxytocin/Sodium Chloride 30 units in 500 mls @ 40 mls/hr 02/08/22 11:00 Pitocin/Ns 30 Unit/500ml IV TITR SAVANNAH Protocol Ibuprofen 600 mg 02/08/22 10:30 02/10/22 16:44 Ibuprofen 600 Mg Tab PO 600 mg Q6H PRN Administration Pain, Mild (1-3) Ketorolac Tromethamine 15 mg 02/08/22 10:30 02/09/22 06:37 Ketorolac 30 Mg/1 Ml Inj IV 02/13/22 10:29 15 mg Q6H PRN Administration Pain, Mild (1-3) Magnesium Hydroxide 30 ml 02/10/22 21:57 02/10/22 22:34 Magnesium Hydroxide (Mom) Oral Liqd Udc PO 30 ml Q4H PRN Administration Constipation Morphine Sulfate 4 mg 02/08/22 11:00 02/08/22 22:01 Morphine 4 Mg/1 Ml Inj IV 4 mg Q4H PRN Administration Pain , Severe (7-10) Multi-Ingredient Ointment 1 applic 02/08/22 10:30 Lanolin/Zinc/Dimethicone (Lansinoh) 7 Gm TP PRN PRN dryness/cracking Naloxone HCl 0.1 mg 02/08/22 11:00 Naloxone 0.4 Mg/1 Ml Inj IV Q2MIN PRN Res Rate </= 8 or 02 SAT < 92% Ondansetron HCl 4 mg 02/08/22 11:00 Ondansetron 4 Mg/2 Ml Inj IV Q8H PRN Nausea And Vomiting Oxycodone/Acetaminophen 1 tab 02/08/22 11:00 02/10/22 20:12 Oxycodone /Acetaminophen 5-325mg Tab PO 1 tab Q6H PRN Administration Pain, Moderate (4-6) Promethazine HCl 25 mg 02/08/22 11:00 Promethazine 25 Mg Rect Supp NV Q6H PRN N/V IF NPO AND NO IV ACCESS Sodium Chloride 10 ml 02/08/22 11:00 Sodium Chloride 0.9% 10 Ml Flush Syringe IV 02/21/22 10:59 PRN NR Witch Alysha/Glycerin 1 each 02/08/22 10:30 Witch Alysha/ Glycerin Pad TP PRN PRN Hemorrhoids/cleansing/soothing
[2022-02-11] MEDS: oxyCODONE /ACETAMINOPHEN 5-325MG TAB PO PRN (13:38)
--- NOTE | 2022-02-11 13:55 | Discharge Summary ---
Providers - Providers Date of Admission: 02/08/22 05:09 Date of discharge: 02/11/22 Attending physician: HAIDER SHERMAN Primary care physician: HAIDER SHERMAN Hospitalization Reason for admission: section Delivery: Procedure: repeat low transverse Episiotomy: none Laceration: none Incision: warm (serosanguinous drainage resolved) complications: other (small serosanguinous drainage that resolved with pressure dressing x24hrs) Discharge diagnosis: IUP at term delivered Condition at discharge: Fair Disposition: 01 HOME / SELF CARE / HOMELESS - Discharge Diagnoses (1) Delivery by (planned) section occurring after 37 completed weeks of gestation but before 39 completed weeks gestation due to (spontaneous) onset of labor, with mention of complication Status: Acute Plan - Discharge Medications Prescriptions: Amoxicillin/K Clav Tab [Augmentin 875 mg] 1 tab PO Q12HR 5 Days #10 tab Ibuprofen [Motrin] 800 mg PO Q8HR PRN 21 Days #40 tablet PRN Reason: Pain, Moderate (4-6) oxyCODONE /ACETAMINOPHEN [Percocet 5/325] 1 tab PO Q4HR PRN 21 Days #30 tab PRN Reason: Pain , Severe (7-10) - Provider Discharge Summary Additional instructions: [] Smoking cessation referral if applicable(refer to patient education folder for contact #) [] Refer to [facility] Booklet Call your doctor immediately for: * Fever > 100.5 * Heavy vaginal bleeding ( >1 pad per hour) * Severe persistent headache * Shortness of breath * Reddened, hot, painful area to leg or breast * Drainage or odor from incision. * Keep incision clean and dry at all times and follow doctor's instructions regarding bathing/showering - Follow up plan Follow up: HAIDER SHERMAN MD [Primary Care Provider] - 7 Days
== END 2022-02-11 15:13 | disposition home or self-care (01) | DRG 766 ==
LOC: APU 05:09 → OB 14:24
PROVIDERS: ADMIT Obstetrics & Gynecology; ATTEND Obstetrics & Gynecology
PROC: 10D00Z1 Extraction of Products of Conception, Low, Open Approach (ICD-10-PCS; principal; 2022-02-08)
PROC: 3E0T3BZ Introduction of Anesthetic Agent into Peripheral Nerves and Plexi, Percutaneous Approach (ICD-10-PCS; 2022-02-08)
DX: O34.211 Maternal care for low transverse scar from previous cesarean delivery (principal); Z37.0 Single live birth; Z3A.39 39 weeks gestation of pregnancy; Z20.822 Contact with and (suspected) exposure to COVID-19; O99.824 Streptococcus B carrier state complicating childbirth; O99.62 Diseases of the digestive system complicating childbirth; K21.9 Gastro-esophageal reflux disease without esophagitis
CPT/HCPCS: 36415; 71046; 81001; 85014; 85018; 85025; 86592; 86850; 86900; 86901; G0378; J3490; J1100; J1885; J2270; J2405; J2765; J3010; U0003